=== PATIENT | female | born 1935 | race African-American/Black ===

== ENCOUNTER 2017-08-06 15:33 | Emergency (ER) | payer MEDICARE, OTHER ==
[2017-08-06 15:48] VITALS: TEMP 98.2; BMI 24.7
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
[2017-08-06 17:08] LABS: BASO % 0.7 % (0-2.0); EOS % 1.4 % (0-4.5); HEMOGLOBIN 12.8 GM/dL (10.7-15.3); LYMPH % 22.7 % (8-40); MCH 29.2 pg (25.7-33.7); MCHC 32.9 g/dl (32.0-36.0); MEAN CELL VOLUME 88.7 fl (80-96); MEAN PLT VOLUME 9.8 fl (7.5-11.1); MONO % 7.3 % (3.8-10.2); NEUT % 67.9 % (42.8-82.8); RDW 15.1 % (11.6-15.6); WHITE BLOOD COUNT 5.9 K/mm3 (4.0-10.0)
[2017-08-06 17:49] LABS: PLATELET COUNT 279 K/MM3 (134-434); PLATELET ESTIMATE ADEQUATE
[2017-08-06 18:01] LABS: ALBUMIN 4.1 g/dl (3.4-5.0); ANION GAP 4 (8-16); BILIRUBIN,TOTAL 0.5 mg/dL (0.2-1.0); BLOOD UREA NITROGEN 16 mg/dL (7-18); CALCIUM 9.8 mg/dL (8.5-10.1); CHLORIDE 106 mmol/L (98-107); CO2 30 mmol/L (21-32); GLUCOSE,RANDOM 99 mg/dL (74-106); SODIUM 140 mmol/L (136-145); TOT PROT 8.1 g/dl (6.4-8.2)
[2017-08-06 18:04] LABS: ALK PHOS 78 U/L (45-117); SGPT/ALT 19 U/L (12-78)
[2017-08-06 18:05] LABS: POTASSIUM 4.3 mmol/L (3.5-5.1); SGOT/AST 24 U/L (15-37)
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
[2017-08-06 20:25] VITALS: BP 166/95; PULSE 76
== END 2017-08-06 23:47 | disposition home or self-care (01) ==
LOC: JER 15:33
DX: M54.2 Cervicalgia (principal); V43.62XA Car passenger injured in collision with other type car in traffic accident, initial encounter; W22.12XA Striking against or struck by front passenger side automobile airbag, initial encounter; Y93.89 Activity, other specified; Y92.414 Local residential or business street as the place of occurrence of the external cause; Y99.8 Other external cause status; I10 Essential (primary) hypertension; F03.90 Unspecified dementia, unspecified severity, without behavioral disturbance, psychotic disturbance, mood disturbance, and anxiety
CPT/HCPCS: 36415; 70498-TC; 80053; 85025; 99284-25